=== PATIENT | female | born 1995 | race Caucasian/White ===

== ENCOUNTER → 2022-04-28 | Outpatient (CLI) | payer BC | END | disposition home or self-care (01) | LOC: LABWHC1 15:33 | PROVIDERS: ATTEND Obstetrics & Gynecology Obstetrics | DX: N92.5 Other specified irregular menstruation (principal) | CPT/HCPCS: 36415; 84144; 84702 ==

== ENCOUNTER → 2022-04-30 | Outpatient (CLI) | payer BC | END | disposition home or self-care (01) | LOC: LABWHC1 15:31 | PROVIDERS: ATTEND Obstetrics & Gynecology Obstetrics | DX: N92.5 Other specified irregular menstruation (principal) | CPT/HCPCS: 36415; 84702 ==

== ENCOUNTER → 2022-05-02 | Outpatient (CLI) | payer BC | END | disposition home or self-care (01) | LOC: LABWHC1 08:11 | PROVIDERS: ATTEND Obstetrics & Gynecology Obstetrics | DX: O20.0 Threatened abortion (principal); Z3A.00 Weeks of gestation of pregnancy not specified | CPT/HCPCS: 36415; 84702 ==

== ENCOUNTER 2022-10-15 22:33 | Emergency (ER) | payer BC ==
--- NOTE | 2022-10-15 23:24 | ED ---
General Adult HPI - General Chief complaint: Arrhythmia/Palpitations Stated complaint: Heart Palpitations Time Seen by Provider: 10/15/22 22:59 Source: patient Mode of arrival: ambulatory Limitations: no limitations - History of Present Illness Initial comments: Dictation was produced using [employer] dictation software. please excuse any grammatical, word or spelling errors. Chief Complaint: 27-year-old female presents emergency Department with palpitations History of Present Illness: Patient is a 19-year-old female presents emergency part for palpitations. Patient is 20 weeks . She has no complications with this . Patient denies any cardiac or pulmonary comorbidities. She started having palpitations today. Feels like her heart is beating out of her chest. Associated with chest pain she does report some lightheadedness. Patient is on Lovenox due to history of miscarriages in the past. Her client support coordinator is Dr. Pope The ROS documented in this emergency department record has been reviewed and confirmed by me. Those systems with pertinent positive or negative responses have been documented in the HPI. All other systems are other negative and/or noncontributory. PHYSICAL EXAM: General Impression: Alert and oriented x3, not in acute distress HEENT: Normocephalic atraumatic, extra-ocular movements intact, pupils equal and reactive to light bilaterally, mucous membranes moist. Cardiovascular: Heart regular rate and rhythm Chest: Able to complete full sentences, no retractions, no tachypnea Abdomen: abdomen soft, non-tender, non-distended, no organomegaly Musculoskeletal: Pulses present and equal in all extremities, no peripheral edema Motor: no focal deficits noted Neurological: CN II-XII grossly intact, no focal motor or sensory deficits noted Skin: Intact with no visualized rashes Psych: Normal affect and mood ED course: 27-year-old well-appearing female presents emergency department for chief complaint of one day of intermittent palpitations. Physical examination is benign. Patient is 28 weeks . Vital signs upon arrival are within acceptable limits. No tachycardia. EKG does not show any dysrhythmias. Patient placed on nurse monitoring and observed in emergency department. Nursing notes and chart review was performed EKG interpreted by me: Ventricular rate 80, sinus rhythm,. Interval 157, QRS 85, QTC 377. No ME prolongation, no QTC prolongation, no ST or T-wave changes noted. Overall, this EKG is unremarkable Blood work is unremarkable. Metabolic panel is negative. Troponins negative. Nitric peptide is negative. Patient did not fill comfortable with performing a chest x-ray. Patient observed in emergency department for 3 hours. potline monitor was reviewed showing no acute processes. Patient will be discharged advised follow up with client support coordinator. - Related Data Allergies Allergy/AdvReac Type Severity Reaction Status Date / Time No Known Allergies Allergy Verified 10/15/22 22:48 Review of Systems ROS Statement: Those systems with pertinent positive or pertinent negative responses have been documented in the HPI. ROS Other: All systems not noted in ROS Statement are negative. Past Medical History Past Medical History: No Reported History History of Any Multi-Drug Resistant Organisms: None Reported Past Surgical History: No Surgical Hx Reported Past Psychological History: No Psychological Hx Reported Smoking Status: Never smoker Past Alcohol Use History: None Reported Past Drug Use History: None Reported General Exam Limitations: no limitations Course Vital Signs 10/15/22 22:45 Temperature 97.3 F L Pulse Rate 66 Respiratory 16 Rate Blood Pressure 118/77 O2 Sat by Pulse 100 Oximetry Medical Decision Making - Lab Data Result diagrams: 10/16/22 00:36 10/16/22 00:36 Lab Results 10/16/22 10/16/22 10/16/22 Range/Units 00:36 00:36 00:36 WBC 10.7 H (3.8-10.6) k/uL RBC 3.40 L (3.80-5.40) m/uL Hgb 10.7 L (11.4-16.0) gm/dL Hct 29.5 L (34.0-46.0) % MCV 86.6 (80.0-100.0) fL MCH 31.5 (25.0-35.0) pg MCHC 36.3 (31.0-37.0) g/dL RDW 12.0 (11.5-15.5) % Plt Count 198 (150-450) k/uL MPV 9.9 Neutrophils % 61 % Lymphocytes % 31 % Monocytes % 5 % Eosinophils % 1 % Basophils % 0 % Neutrophils # 6.5 (1.3-7.7) k/uL Lymphocytes # 3.4 (1.0-4.8) k/uL Monocytes # 0.6 (0-1.0) k/uL Eosinophils # 0.1 (0-0.7) k/uL Basophils # 0.0 (0-0.2) k/uL Sodium 135 L (137-145) mmol/L Potassium 3.5 (3.5-5.1) mmol/L Chloride 108 H (98-107) mmol/L Carbon Dioxide 20 L (22-30) mmol/L Anion Gap 7 mmol/L BUN 6 L (7-17) mg/dL Creatinine 0.42 L (0.52-1.04) mg/dL Est GFR (CKD-EPI)AfAm >90 (>60 ml/min/1.73 sqM) Est GFR (CKD-EPI)NonAf >90 (>60 ml/min/1.73 sqM) Glucose 82 (74-99) mg/dL Calcium 9.0 (8.4-10.2) mg/dL Magnesium 1.8 (1.6-2.3) mg/dL Total Bilirubin 0.3 (0.2-1.3) mg/dL AST 21 (14-36) U/L ALT 15 (4-34) U/L Alkaline Phosphatase 79 (38-126) U/L Troponin I <0.012 (0.000-0.034) ng/mL NT-Pro-B Natriuret Pep pg/mL Total Protein 6.4 (6.3-8.2) g/dL Albumin 3.6 (3.5-5.0) g/dL 10/16/22 Range/Units 00:36 WBC (3.8-10.6) k/uL RBC (3.80-5.40) m/uL Hgb (11.4-16.0) gm/dL Hct (34.0-46.0) % MCV (80.0-100.0) fL MCH (25.0-35.0) pg MCHC (31.0-37.0) g/dL RDW (11.5-15.5) % Plt Count (150-450) k/uL MPV Neutrophils % % Lymphocytes % % Monocytes % % Eosinophils % % Basophils % % Neutrophils # (1.3-7.7) k/uL Lymphocytes # (1.0-4.8) k/uL Monocytes # (0-1.0) k/uL Eosinophils # (0-0.7) k/uL Basophils # (0-0.2) k/uL Sodium (137-145) mmol/L Potassium (3.5-5.1) mmol/L Chloride (98-107) mmol/L Carbon Dioxide (22-30) mmol/L Anion Gap mmol/L BUN (7-17) mg/dL Creatinine (0.52-1.04) mg/dL Est GFR (CKD-EPI)AfAm (>60 ml/min/1.73 sqM) Est GFR (CKD-EPI)NonAf (>60 ml/min/1.73 sqM) Glucose (74-99) mg/dL Calcium (8.4-10.2) mg/dL Magnesium (1.6-2.3) mg/dL Total Bilirubin (0.2-1.3) mg/dL AST (14-36) U/L ALT (4-34) U/L Alkaline Phosphatase (38-126) U/L Troponin I (0.000-0.034) ng/mL NT-Pro-B Natriuret Pep 17 pg/mL Total Protein (6.3-8.2) g/dL Albumin (3.5-5.0) g/dL Disposition Clinical Impression: Palpitations Disposition: HOME SELF-CARE Condition: Good Instructions (If sedation given, give patient instructions): Heart Palpitations (ED) Is patient prescribed a controlled substance at d/c from ED?: No Referrals: Qing Jenkins PAC [Family Provider] - 1-2 days Rosi Pope DO [Doctor of Osteopathic Medicine] - 1-2 days Time of Disposition: 01:53
[2022-10-16 00:47] LABS: Basophils % (A) 0 %; Eosinophils # (A) 0.1 k/uL (0-0.7); Eosinophils % (A) 1 %; HCT 29.5 % (34.0-46.0); HGB 10.7 gm/dL (11.4-16.0); Lymphocytes # (A) 3.4 k/uL (1.0-4.8); Lymphocytes % (A) 31 %; MCH 31.5 pg (25.0-35.0); MCHC 36.3 g/dL (31.0-37.0); MCV 86.6 fL (80.0-100.0); Mean Platelet Volume 9.9; Monocytes # (A) 0.6 k/uL (0-1.0); Monocytes % (A) 5 %; Neutrophils # (A) 6.5 k/uL (1.3-7.7); Neutrophils % (A) 61 %; Platelet Count 198 k/uL (150-450); WBC 10.7 k/uL (3.8-10.6)
[2022-10-16 00:58] LABS: ALT 15 U/L (4-34); AST 21 U/L (14-36); African American GFR (CKD) >90 (>60 ml/min/1.73 sqM); Albumin 3.6 g/dL (3.5-5.0); Alkaline Phosphatase 79 U/L (38-126); Anion Gap 7 mmol/L; Blood Urea Nitrogen 6 mg/dL (7-17); Carbon Dioxide 20 mmol/L (22-30); Chloride 108 mmol/L (98-107); Glucose 82 mg/dL (74-99); Magnesium 1.8 mg/dL (1.6-2.3); Non-African American GFR(CKD) >90 (>60 ml/min/1.73 sqM); Potassium 3.5 mmol/L (3.5-5.1); Sodium 135 mmol/L (137-145); Total Bilirubin 0.3 mg/dL (0.2-1.3); Total Protein 6.4 g/dL (6.3-8.2)
[2022-10-16 02:02] VITALS: BP 99/65; PULSE 74; RESP 18; TEMP 97.7
== END 2022-10-16 02:02 | disposition home or self-care (01) ==
LOC: EC 22:33
DX: R00.2 Palpitations (principal); O99.891 Other specified diseases and conditions complicating pregnancy; Z3A.20 20 weeks gestation of pregnancy; Z79.01 Long term (current) use of anticoagulants
CPT/HCPCS: 36415; 80053; 83735; 83880; 84484; 85025; 93005; 99285

== ENCOUNTER → 2024-03-03 | Outpatient (CLI) | payer BC | END | disposition home or self-care (01) | LOC: LABWHC1 09:37 | PROVIDERS: ATTEND Obstetrics & Gynecology Obstetrics | DX: N92.5 Other specified irregular menstruation (principal) | CPT/HCPCS: 36415; 84144; 84702 ==

== ENCOUNTER → 2024-03-05 | Outpatient (CLI) | payer BC | END | disposition home or self-care (01) | LOC: LABWHC1 09:55 | PROVIDERS: ATTEND Obstetrics & Gynecology Obstetrics | DX: N92.5 Other specified irregular menstruation (principal) | CPT/HCPCS: 36415; 84702 ==

== ENCOUNTER 2024-07-14 19:27 | Emergency (ER) | payer BC ==
[2024-07-14 19:46] VITALS: BP 100/64; PULSE 78; RESP 18; TEMP 97.8
--- NOTE | 2024-07-14 19:51 | ED ---
Extremity Problem HPI - General Chief complaint: Extremity Problem,Nontraumatic Stated complaint: leg issue Time Seen by Provider: 07/14/24 19:49 Source: patient Mode of arrival: ambulatory Limitations: no limitations - History of Present Illness Initial comments: 29-year-old female presenting with chief complaint of left lower leg discomfort and swelling. Patient is currently 24 weeks , history of MTHFR and currently on Lovenox. She has felt a bit out of breath recently but attributed that to . She did feel a sharp pain in her groin yesterday. No chest pain. - Related Data Home Medications Medication Instructions Recorded Confirmed Aspirin [Vaz[place]] 81 mg PO DAILY 12/09/22 01/02/23 Enoxaparin [Lovenox] 30 mg SQ DAILY 12/09/22 01/02/23 Vit No.179/Iron/Folic 1 tab PO DAILY 12/09/22 01/02/23 [ Tablet] Previous Rx's Medication Instructions Recorded Acetaminophen Tab [Tylenol] 650 mg PO Q6H PRN #30 tab 01/03/23 Ibuprofen [Motrin] 600 mg PO Q6HR PRN #30 tab 01/03/23 Allergies Allergy/AdvReac Type Severity Reaction Status Date / Time No Known Allergies Allergy Verified 07/14/24 19:47 Review of Systems ROS Statement: Those systems with pertinent positive or pertinent negative responses have been documented in the HPI. ROS Other: All systems not noted in ROS Statement are negative. Past Medical History Past Medical History: No Reported History History of Any Multi-Drug Resistant Organisms: None Reported Past Surgical History: Section Additional Past Surgical History / Comment(s): Bunion sx 2008 left foot. Past Anesthesia/Blood Transfusion Reactions: No Reported Reaction Past Psychological History: No Psychological Hx Reported Smoking Status: Former smoker Past Alcohol Use History: None Reported Past Drug Use History: None Reported General Exam - General Exam Comments Initial Comments: Visual Physical Exam Vital signs reviewed General: Well-appearing, nontoxic, no acute distress. Head: Normocephalic, atraumatic Eyes: PERRLA, EOMI ENT: Airway patent Chest: Nonlabored breathing Skin: No visual rash, normal skin tone Neuro: Alert and oriented 3 Musculoskeletal: No gross abnormalities Limitations: no limitations General appearance: alert, in no apparent distress Head exam: Present: atraumatic, normocephalic Eye exam: Present: normal appearance, EOMI Neck exam: Present: normal inspection. Absent: meningismus Respiratory exam: Absent: respiratory distress Cardiovascular Exam: Present: regular rate Left Lower Leg exam: Present: normal inspection, full ROM, swelling (Very mild). Absent: tenderness, erythema Neurovascular tendon exam: Present: no vascular compromise Neurological exam: Present: alert, oriented X3 Psychiatric exam: Present: normal affect, normal mood Skin exam: Present: warm, dry Course Vital Signs 07/14/24 19:43 Temperature 97.8 F Pulse Rate 78 Respiratory 18 Rate Blood Pressure 100/64 O2 Sat by Pulse 96 Oximetry Medical Decision Making - Medical Decision Making Was pt. sent in by a medical professional or institution (, PA, TEAM PHYSICIAN, urgent care, hospital, or shelter...) When possible be specific @ -No Did you speak to anyone other than the patient for history (EMS, parent, family, police, friend...)? What history was obtained from this source @ -No Did you review nursing and triage notes (agree or disagree)? Why? @ -I reviewed and agree with nursing and triage notes Were old charts reviewed (outside hosp., previous admission, EMS record, old EKG, old radiological studies, urgent care reports/EKG's, shelter records)? Report findings @ -No old charts were reviewed Differential Diagnosis (chest pain, altered mental status, abdominal pain women, abdominal pain men, vaginal bleeding, weakness, fever, dyspnea, syncope, headache, dizziness, GI bleed, back pain, seizure, CVA, palpatations, mental health, musculoskeletal)? @ -Differential Musculoskeletal Muscular strain, contusion, ligament sprain, fracture, arthritis, septic arthritis, bursitis, cellulitis, muscle spasm, nerve compression, DVT, arterial occlusion, herpes zoster, electrolyte abnormality, tumor.... This is not meant to be in all inclusive list EKG interpreted by me (3pts min.). @ -As above X-rays interpreted by me (1pt min.). @ -None done CT interpreted by me (1pt min.). @ -None done U/S interpreted by me (1pt. min.). @ -Ultrasound negative for DVT What testing was considered but not performed or refused? (CT, X-rays, U/S, l abs)? Why? @ -None What meds were considered but not given or refused? Why? @ -None Did you discuss the management of the patient with other professionals (professionals i.e. Dr., PA, TEAM PHYSICIAN, lab, RT, psych nurse, adoption social worker, manager garden, teacher, special service officer, case reviewer)? Give summary @ -No Was smoking cessation discussed for >3mins.? @ -No Was critical care preformed (if so, how long)? @ -No Were there social determinants of health that impacted care today? How? (Homelessness, low income, unemployed, alcoholism, drug addiction, transportation, low edu. Level, literacy, decrease access to med. care, group home, rehab)? @ -No Was there de-escalation of care discussed even if they declined (Discuss DNR or withdrawal of care, Hospice)? DNR status @ -No What co-morbidities impacted this encounter? (DM, HTN, Smoking, COPD, CAD, Cancer, CVA, ARF, Chemo, Hep., AIDS, mental health diagnosis, sleep apnea, morbid obesity)? @ -None Was patient admitted / discharged? Hospital course, mention meds given and route, prescriptions, significant lab abnormalities, going to OR and other pertinent info. @ -29-year-old female presenting chief complaint of left lower extremity discomfort and swelling. Currently 24 weeks and on Lovenox. Patient is neurovascularly intact. Ultrasound is negative for DVT. She is educated on results and instructed to follow-up with her PCP and MANAGER PROGRAM MANAGEMENT. Discharged. Follow-up with PCP. Report back to ER with any new or worsening symptoms. Discussed return parameters and answered all questions. Patient conveyed verbal understanding and agreed to the plan. I discussed this case in detail with my attending Dr. Mcgowan Undiagnosed new problem with uncertain prognosis? @ -No Drug Therapy requiring intensive monitoring for toxicity (Heparin, Nitro, Insulin, Cardizem)? @ -No Were any procedures done? @ -No Diagnosis/symptom? @ -Leg cramping Acute, or Chronic, or Acute on Chronic? @ -Acute Uncomplicated (without systemic symptoms) or Complicated (systemic symptoms)? @ -Uncomplicated Side effects of treatment? @ -No Exacerbation, Progression, or Severe Exacerbation? @ -No Poses a threat to life or bodily function? How? (Chest pain, [place], [place], pneumonia, PE, COPD, DKA, ARF, appy, cholecystitis, CVA, Diverticulitis, Homicidal, Suicidal, threat to staff... and all critical care pts) @ -No Disposition Clinical Impression: Leg cramping Disposition: HOME SELF-CARE Condition: Good Instructions (If sedation given, give patient instructions): Leg Cramps (ED) Additional Instructions: Follow-up with your PCP and MANAGER PROGRAM MANAGEMENT. Report back to ER with any new or worsening symptoms. Take Tylenol as needed for pain control. Is patient prescribed a controlled substance at d/c from ED?: No Referrals: Kris Paredes MD [Primary Care Provider] - 1-2 days Rosi Pope DO [Doctor of Osteopathic Medicine] - 07/19/24 Time of Disposition: 21:32
--- NOTE | 2024-07-14 20:54 | US ---
EXAMINATION TYPE: US venous doppler duplex LE LT DATE OF EXAM: 07/14/2024 8:45 PM COMPARISON: NONE CLINICAL INDICATION: Female, 29 years old with history of swelling; Patient states left leg swelling. Patient also . Patient has clotting disorder, but has never had a problem before. On thinner s currently SIDE PERFORMED: Left TECHNIQUE: The lower extremity deep venous system is examined utilizing real time linear array sonog zaheer with graded compression, doppler sonography and color-flow sonography. VESSELS IMAGED: Common Femoral Vein Deep Femoral Vein Greater Saphenous Vein * Femoral Vein Popliteal Vein Small Saphenous Vein * Proximal Calf Veins (* superficial vessels) Left Leg: Negative for DVT as best seen IMPRESSION: Grayscale, color doppler, spectral doppler imaging performed of the deep veins of the lo wer extremities. There is normal flow, compressibility, vascular waveforms.
== END 2024-07-14 21:47 | disposition home or self-care (01) ==
LOC: EC 19:27 → SUPCPDRO 19:27 → EC 21:47
CPT/HCPCS: 99283

== ENCOUNTER 2024-10-06 09:49 | Outpatient (CLI) | payer BC ==
[2024-10-06 12:12] VITALS: BP 125/76; PULSE 95; RESP 18; TEMP 97.9
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
== END 2024-10-06 12:05 | disposition home or self-care (01) ==
LOC: FBPOP 09:49
PROVIDERS: ATTEND Obstetrics & Gynecology Obstetrics
DX: O9A.213 Injury, poisoning and certain other consequences of external causes complicating pregnancy, third trimester (principal); Z3A.36 36 weeks gestation of pregnancy; G89.11 Acute pain due to trauma
CPT/HCPCS: 59025; 99213

== ENCOUNTER 2024-11-02 06:00 | Inpatient (IN) | payer BC ==
[2024-11-02] MEDS ORDERED: TRANEXAMIC 1,000 MG/100ML-NACL 1,000 MG in EMPTY BAG 1 BAG IV PRN (07:22)
[2024-11-02] MEDS ORDERED: miSOPROStoL 200 MCG TAB PO PRN (07:22)
[2024-11-02] MEDS ORDERED: CARBOPROST TROMETHAMINE 250 MCG/ML 1 ML AMP IM PRN (07:22)
[2024-11-02] MEDS ORDERED: miSOPROStoL 200 MCG TAB RECTAL PRN (07:22)
[2024-11-02] MEDS ORDERED: METHYLERGONOVINE 0.2 MG/ML 1 ML AMP IM PRN (07:22)
[2024-11-02] MEDS ORDERED: OXYTOCIN 10 UNIT/ML 1 ML VIAL IM PRN (07:22)
[2024-11-02] MEDS ORDERED: TERBUTALINE 1 MG/ML VIAL SQ PRN (07:22)
[2024-11-02] MEDS ORDERED: LIDOCAINE 0.5% (PF) 5 MG/ML (50 ML SDV) SQ PRN (07:22)
[2024-11-02] MEDS: LACTATED RINGERS 1,000 ML IV SCH ×2 (07:30→18:04)
[2024-11-02] MEDS: OXYTOCIN 30 UNITS/500 ML NS 30 UNIT in SALINE 1 500ML.BAG IV SCH (07:45)
[2024-11-02 08:00] LABS: Basophils % (A) 0 %; Eosinophils # (A) 0.1 k/uL (0-0.7); Eosinophils % (A) 2 %; HCT 29.8 % (34.0-46.0); HGB 9.9 gm/dL (11.4-16.0); Lymphocytes # (A) 2.9 k/uL (1.0-4.8); Lymphocytes % (A) 35 %; MCH 27.3 pg (25.0-35.0); MCHC 33.1 g/dL (31.0-37.0); MCV 82.4 fL (80.0-100.0); Mean Platelet Volume 10.8; Monocytes # (A) 0.4 k/uL (0-1.0); Monocytes % (A) 5 %; Neutrophils # (A) 4.5 k/uL (1.3-7.7); Neutrophils % (A) 54 %; Platelet Count 165 k/uL (150-450); RBC 3.62 m/uL (3.80-5.40); RDW 14.5 % (11.5-15.5); WBC 8.3 k/uL (3.8-10.6)
[2024-11-02] MEDS ORDERED: ROPIVACAINE 5 MG/ML 30 ML VIAL ONE (10:09)
[2024-11-02] MEDS ORDERED: SODIUM CHLORIDE 0.9% 250 ML BAG ONE (10:09)
[2024-11-02] MEDS ORDERED: fentaNYL (PF) 50 MCG/ML 5 ML AMP ONE (10:09)
[2024-11-02] MEDS: CITRIC ACID-SODIUM CITRATE 15 ML CUP PO ONE (15:41)
[2024-11-02] MEDS ORDERED: SUCCINYLCHOLINE CHLORIDE 200 MG/10 ML VIAL IV ONE (15:47)
[2024-11-02] MEDS ORDERED: LIDOCAINE HCL/PF 20 MG/ML 10 ML AMP ONE (15:47)
[2024-11-02] MEDS ORDERED: MORPHINE SULFATE (PF) 0.3 MG/0.3 ML SYR ONE (15:47)
[2024-11-02] MEDS ORDERED: PHENYLEPHRINE-0.9% NACL SYG 1,000 MCG/10 ML SYRINGE ONE (15:47)
[2024-11-02] MEDS ORDERED: ONDANSETRON 4 MG/2 ML VIAL ONE (15:47)
[2024-11-02] MEDS ORDERED: OXYTOCIN 30 UNITS/500 ML NS BAG IV ONE (15:47)
[2024-11-02] MEDS ORDERED: PROPOFOL 10 MG/ML 20 ML VIAL IV ONE (15:47)
[2024-11-02] MEDS ORDERED: NALOXONE 0.4 MG/ML 1 ML VIAL IV PRN (16:34)
[2024-11-02] MEDS ORDERED: diphenhydrAMINE 25 MG CAP PO PRN (16:34)
[2024-11-02] MEDS ORDERED: ONDANSETRON 4 MG/2 ML VIAL IVP PRN (16:34)
[2024-11-02] MEDS ORDERED: METOCLOPRAMIDE 5 MG/ML 2 ML VIAL IVP PRN (16:34)
[2024-11-02] MEDS ORDERED: diphenhydrAMINE 50 MG CAP PO PRN (16:34)
[2024-11-02] MEDS ORDERED: ZOLPIDEM 5 MG TAB PO PRN (16:34)
[2024-11-02] MEDS ORDERED: diphenhydrAMINE 50 MG/ML 1 ML VIAL IVP PRN ×2 (16:34)
[2024-11-02] MEDS: ACETAMINOPHEN IV (For NPO) 1,000 MG in EMPTY BAG 1 BAG IVPB STA (18:03)
[2024-11-02] MEDS: ROPIVACAINE 225 MG, fentaNYL (PF). 450 MCG in SODIUM CHLORIDE 0.9% 171 ML EPIDURAL ONE (19:09)
[2024-11-02] MEDS: SENNOSIDES-DOCUSATE SODIUM 1 EACH TAB PO SCH (20:03)
[2024-11-02] MEDS: IBUPROFEN IV 800 MG in SODIUM CHLORIDE 0.9% 250 ML IV ONE (22:10)
[2024-11-03] MEDS: ACETAMINOPHEN TAB 500 MG TAB PO SCH (01:49)
[2024-11-03] MEDS: IBUPROFEN 800 MG TAB PO SCH (05:52)
[2024-11-03 06:45] LABS: Basophils % (A) 0 %; Eosinophils # (A) 0.1 k/uL (0-0.7); Eosinophils % (A) 1 %; HCT 28.8 % (34.0-46.0); HGB 9.3 gm/dL (11.4-16.0); Hypochromasia Slight; Lymphocytes # (A) 2.4 k/uL (1.0-4.8); Lymphocytes % (A) 20 %; MCH 26.9 pg (25.0-35.0); MCHC 32.4 g/dL (31.0-37.0); MCV 83.2 fL (80.0-100.0); Mean Platelet Volume 11.3; Monocytes # (A) 0.6 k/uL (0-1.0); Monocytes % (A) 5 %; Neutrophils % (A) 73 %; Platelet Count 148 k/uL (150-450); RBC 3.46 m/uL (3.80-5.40); RDW 14.6 % (11.5-15.5); WBC 12.4 k/uL (3.8-10.6)
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
[2024-11-03] MEDS: PRENATAL VIT-IRON-FOLIC ACID 1 EACH TABLET PO SCH (10:08)
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
--- NOTE | 2024-11-03 11:30 | P.HPOB ---
History of Present Illness H&P Date: 11/02/24 Chief Complaint: IUP at 39-5/7 weeks, advance cervical dilation 29-year-old 10 para 2-0-7-2 at 39-5/7 weeks that presents to labor delivery for induction of labor secondary to advanced cervical dilation. Patient has a history of recurrent loss for which she did see maternal- medicine. Patient has known MTHFR deficiency therefore was placed on Lovenox 40 mg daily by [facility]. Last Lovenox dose was over 24 hours ago. Patient notes good movement. She notes an occasional contraction. She denies loss of fluid or vaginal bleeding prior to admission. blood work this patient is a blood type of A pos, gbs neg Review of Systems Constitutional: Denies chills, Denies fatigue, Denies fever Ears, nose, mouth and throat: Denies headache Cardiovascular: Denies leg edema Respiratory: Denies dyspnea Gastrointestinal: Denies constipation, Denies diarrhea, Denies nausea, Denies vomiting Genitourinary: Reports Past Medical History Past Medical History: No Reported History Additional Past Medical History / Comment(s): MTHFR gene History of Any Multi-Drug Resistant Organisms: None Reported Past Surgical History: Section Additional Past Surgical History / Comment(s): Bunion sx 2008 left foot. Past Anesthesia/Blood Transfusion Reactions: No Reported Reaction Past Psychological History: No Psychological Hx Reported Additional Psychological History / Comment(s): PPA after last baby Smoking Status: Never smoker Past Alcohol Use History: None Reported Past Drug Use History: None Reported Medications and Allergies Home Medications Medication Instructions Recorded Confirmed Type Aspirin [[place]] 81 mg PO DAILY 12/09/22 11/02/24 History Enoxaparin [Lovenox] 30 mg SQ DAILY 12/09/22 11/02/24 History Vit No.179/Iron/Folic 1 tab PO DAILY 12/09/22 11/02/24 History [ Tablet] Allergies Allergy/AdvReac Type Severity Reaction Status Date / Time No Known Allergies Allergy Verified 11/02/24 07:21 Exam Osteopathic Statement: *. No significant issues noted on an osteopathic structural exam other than those noted in the History and Physical/Consult. Vital Signs Temp Pulse Resp BP Pulse Ox 11/02/24 07:36 97.4 F L 80 18 124/57 99 Intake and Output 12/11/02/24 11/02/24 22:59 06:59 14:59 Other: Weight 73.936 kg Targeted physical exam is performed this date General Is well-nourished well- developed female in no acute distress, breathing is nonlabored, abdomen is noted to be gravid and appropriate for gestational age, on cervical exam she is 5/80/-2 station amniotomy is performed and scant clear fluid is obtained. heart tones noted to be category 1 and she is ziggy irregularly. Pitocin is noted to be at 2 milliunits. Results Result Diagrams: 11/02/24 07:30 Abnormal Lab Results - Last 24 Hours (Table) 11/02/24 Range/Units 07:30 RBC 3.62 L (3.80-5.40) m/uL Hgb 9.9 L (11.4-16.0) gm/dL Hct 29.8 L (34.0-46.0) % Assessment and Plan (1) Term Current Visit: Yes Status: Acute Code(s): Z34.90 - ENCNTR FOR SUPRVSN OF NORMAL , UNSP, UNSP TRIMESTER SNOMED Code(s): 65636544 (2) Desires vaginal after trial Current Visit: No Status: Acute Code(s): O34.219 - MATERNAL CARE FOR UNSP TYPE SCAR FROM PREVIOUS DEL SNOMED Code(s): 624157921 (3) H/O section Current Visit: No Status: Acute Code(s): Z98.891 - HISTORY OF UTERINE SCAR FROM PREVIOUS SURGERY SNOMED Code(s): 269330324 Plan: 29-year-old 10 para 2-0-7-2 at 39-5/7 weeks presents for induction of labor secondary to advanced cervical dilation. Patient is admitted and Pitocin induction of labor was begun. Options for analgesia are discussed and she request epidural when appropriate. Anticipate spontaneous vaginal delivery.
--- NOTE | 2024-11-03 11:36 | P.OP ---
Date of Procedure: 11/02/24 Preoperative Diagnosis: IUP at 39-5/7 weeks, history of x 1, history of successful vaginal x 1, arrest of descent, patient request for section Postoperative Diagnosis: Same plus occiput transverse presentation, uterine rupture Procedure(s) Performed: Repeat section Anesthesia: GETA, epidural Surgeon: Rosi Pope Rewrite Editor #1: Lizy Hayes Estimated Blood Loss (ml): 550 IV fluids (ml): 600 Urine output (ml): 50 (Blood-tinged, clearing at the end of procedure) Pathology: other (Placenta) Condition: stable Disposition: observation Indications for Procedure: 29-year-old G 10 para 2-0-7-2 at 39-5/7 weeks that presented to labor and delivery for induction of labor secondary to advanced cervical dilation. Patient has a history of a prior section secondary to breech presentation followed by successful vaginal after . Patient was admitted and Pitocin induction of labor was begun. Patient underwent amniotomy clear fluid was obtained. Patient made good progress toward complete dilation. Patient did receive an epidural during the labor process. Patient was noted to be complete and began pushing, after several hours of pushing no descent was appreciated and patient was requesting section because "the baby is not coming". Patient was counseled on section questions were answered and patient was taken back to the operating suite. Operative Findings: Viable male delivered, 7 pounds 8 ounces, bladder was noted to be adherent to the midportion of the anterior uterus. Upon dissection of the uterus uterine rupture was appreciated on the left lateral uterus, supposed at prior hysterotomy site. Hysterotomy incision closed in 1 layer secondary to the thin nature of lower uterine segment. Description of Procedure: Patient was taken back to the operating suite where epidural anesthesia was found to be in adequate, general anesthesia was then instituted by the anesthesia department. Patient was prepped and draped prior to this in the normal sterile fashion in a dorsal supine position. Once general anesthesia was initiated a Pfannenstiel skin incision was made with a scalpel and carried through the underlying layer of fascia. The fascia was incised in midline and extended laterally. The superior aspect of the fascial incision was then gras ped with Mani clamps, elevated and the underlying rectus muscle was dissected off sharply. The inferior aspect of the fascial incision was then grasped with Mani clamps, elevated and the underlying rectus muscle was dissected off sharply. The rectus muscles were in the midline the peritoneum was identified and entered, the bladder was noted to be high on the anterior uterine wall. The bladder blade was inserted into the pelvis and the bladder was gently dissected off of the anterior uterine wall. Hysterotomy incision was performed, small uterine defect/rupture site was appreciated at this time on the left-hand side of the hysterotomy incision. The infant was encountered in an occiput transverse presentation. Infant was delivered in the usual fashion and handed off to awaiting RN. Spontaneous cry was appreciated. The umbilical cord was doubly clamped and cut. Placenta was delivered manually and the uterus was cleared of all clots and debris. The uterus was then exteriorized and cleared of all clots and debris. The uterine incision was then closed in a running locked fashion of 0 Vicryl. Given the thin nature of the uterine incision 1 layer was used for closure. The bladder was noted to be free from the operating field during the closure of the hysterotomy incision. The pelvis was then irrigated copiously and the uterus was returned to the abdomen. The gutters were cleared of all clots and debris. The uterine incision was inspected and found to be hemostatic. A small amount of bleeding was noted on the edge of the vesicouterine peritoneum therefore Surgicel powder was placed along this area. The rectus muscles were inspected found to be hemostatic and the fascia was closed with 0 Vicryl in a running fashion from 1 lateral edge to the other. The subcutaneous tissue was found to be hemostatic and closed with 3-0 Vicryl in a running fashion. The skin was then closed with 4-0 Vicryl in a subcuticular fashion. All counts were noted be correct x 2. Patient and infant tolerated delivery well and are resting comfortably.
--- NOTE | 2024-11-04 09:32 | P.PNOBGPC ---
Subjective - Subjective Principal diagnosis: Postop day 3, repeat section failed trial of labor Interval history: Patient is doing better this morning. She states her pain is better controlled today versus yesterday. She is ambulating and voiding without difficulty. She is tolerating a regular diet. She denies nausea or vomiting. Her lochia is minimal. She is breast-feeding without difficulty. Patient reports: Reports appetite normal, Reports voiding normally, Reports pain well controlled, Reports ambulating normally : doing well, nursing well Objective - Vital Signs Latest vital signs: Vital Signs Temp Pulse Resp BP Pulse Ox 11/04/24 00:00 97.3 F L 80 18 108/66 11/03/24 16:00 97.4 F L 88 16 108/74 98 - Exam Extremities: Present: normal, edema Abdomen: Present: normal appearance, soft Incision: Present: normal, dry, intact Uterus: Present: normal, firm Assessment and Plan (1) Term Current Visit: Yes Status: Acute Code(s): Z34.90 - ENCNTR FOR SUPRVSN OF NORMAL , UNSP, UNSP TRIMESTER SNOMED Code(s): 86647299 (2) Desires vaginal after trial Current Visit: No Status: Acute Code(s): O34.219 - MATERNAL CARE FOR UNSP TYPE SCAR FROM PREVIOUS DEL SNOMED Code(s): 252923576 (3) H/O section Current Visit: No Status: Acute Code(s): Z98.891 - HISTORY OF UTERINE SCAR FROM PREVIOUS SURGERY SNOMED Code(s): 827379450 Plan: Patient is feeling well. Plan to continue routine postoperative care, anticipate discharge home tomorrow.
[2024-11-04] MEDS: SIMETHICONE 80 MG CHEWABLE PO PRN (13:48)
[2024-11-05 08:33] VITALS: BP 127/86; PULSE 76; RESP 14; TEMP 97.8
--- NOTE | 2024-11-05 09:42 | P.PNOBGPC ---
Subjective - Subjective Principal diagnosis: Postop day #3 status post repeat section Interval history: Patient is doing well postoperatively. Pain is improving. She is breast- feeding without difficulty. Her lochia is minimal. She states she is overall feeling well. Patient reports: Reports appetite normal, Reports voiding normally, Reports pain well controlled, Reports ambulating normally [place]: doing well, nursing well Objective - Vital Signs Latest vital signs: Vital Signs Temp Pulse Resp BP Pulse Ox 11/05/24 08:00 97.8 F 76 14 127/86 11/05/24 00:00 97.5 F L 73 15 113/65 98 11/04/24 15:23 98.0 F 71 16 104/68 97 - Exam Extremities: Present: normal, edema Abdomen: Present: normal appearance, soft Incision: Present: normal, dry, intact Uterus: Present: normal, firm Assessment and Plan (1) Term Current Visit: Yes Status: Acute Code(s): Z34.90 - ENCNTR FOR SUPRVSN OF NORMAL , UNSP, UNSP TRIMESTER SNOMED Code(s): 86266809 (2) Desires vaginal after trial Current Visit: No Status: Acute Code(s): O34.219 - MATERNAL CARE FOR UNSP TYPE SCAR FROM PREVIOUS DEL SNOMED Code(s): 112513013 (3) H/O section Current Visit: No Status: Acute Code(s): Z98.891 - HISTORY OF UTERINE SCAR FROM PREVIOUS SURGERY SNOMED Code(s): 154348816 Plan: 29-year-old G10 para 3-0-7-3 status post repeat section. Patient had a prior history of a successful vaginal after followed by this . Patient underwent repeat section for arrest of descent. Patient has done well postoperatively. Will continue routine postoperative care and anticipate discharge home tomorrow
== END 2024-11-05 16:32 | disposition home or self-care (01) | DRG 786 ==
LOC: 4FBP 07:07
PROVIDERS: ADMIT Obstetrics & Gynecology Obstetrics; ATTEND Obstetrics & Gynecology Obstetrics
PROC: 10D00Z1 Extraction of Products of Conception, Low, Open Approach (ICD-10-PCS; principal; 2024-11-02 16:00)
PROC: 0UQ90ZZ Repair Uterus, Open Approach (ICD-10-PCS; principal; 2024-11-02 16:00)
PROC: 10907ZC Drainage of Amniotic Fluid, Therapeutic from Products of Conception, Via Natural or Artificial Opening (ICD-10-PCS; principal; 2024-11-02 16:00)
DX: O34.211 Maternal care for low transverse scar from previous cesarean delivery (principal); O71.1 Rupture of uterus during labor; E72.12 Methylenetetrahydrofolate reductase deficiency; O62.1 Secondary uterine inertia; O66.40 Failed trial of labor, unspecified; O99.284 Endocrine, nutritional and metabolic diseases complicating childbirth; O32.8XX0 Maternal care for other malpresentation of fetus, not applicable or unspecified; Z37.0 Single live birth; Z3A.39 39 weeks gestation of pregnancy; Z28.21 Immunization not carried out because of patient refusal; Z28.310 Unvaccinated for COVID-19; Z79.01 Long term (current) use of anticoagulants; Z79.82 Long term (current) use of aspirin
CPT/HCPCS: 85025; 86850; 86900; 86901; 88307